=== PATIENT | male | born 1940 | race Caucasian/White ===

== ENCOUNTER 2018-10-14 15:06 | Inpatient (IN) ==
[2018-10-14] MEDS ORDERED: Lisinopril 20 MG TABLET PO PRN (19:07)
[2018-10-14] MEDS: *HR* OxyCODONE Immed Rel 5 MG TABLET PO PRN (21:16)
[2018-10-14] MEDS: Sennosides/Docusate Sodium TABLET PO SCH (21:16)
[2018-10-14] MEDS: Metoprolol XL (24 HR) Succ 50 MG TAB.ER.24H PO SCH (22:38)
[2018-10-15] MEDS: *HR* OxyCODONE Immed Rel 5 MG TABLET PO PRN ×3 (05:19→21:03)
[2018-10-15] MEDS: *HR* Enoxaparin 40 MG/0.4 ML SYRINGE SQ SCH (05:19)
[2018-10-15 06:18] LABS: Basophils % 0.4 %; Eosinophils # 0.1 K/mcL (0.0-0.6); Eosinophils % 2.7 %; Hematocrit 25.7 % (37.5-50.1); Hemoglobin 8.4 g/dL (12.9-16.9); Immature Granulocytes % 2.1 % (0-4); Lymphocytes # 0.7 K/mcL (0.6-4.6); Lymphocytes % 13.1 %; Mean Corpuscular HGB Conc 32.7 g/dL (31.6-35.5); Mean Corpuscular Hemoglobin 32.8 pg (28.0-33.3); Mean Corpuscular Volume 100.4 fL (83.0-100.0); Mean Platelet Volume 9.6 fL (9.4-12.4); Monocytes # 0.6 K/mcL (0.0-1.3); Monocytes % 11.9 %; Neutrophils # 3.6 K/mcL (1.6-8.9); Nucleated Red Blood Cells 0.4 /100 WBC (0); Platelet Count 357 K/mcL (140-400); Red Blood Count 2.56 M/mcL (4.19-5.50); Red Cell Distribution Width 16.3 % (11.5-14.5); Segmented Neutrophils % 69.8 %; White Blood Count 5.2 K/mcL (4.3-11.1)
[2018-10-15 06:51] LABS: BUN/Creatinine Ratio 18 (6-26); Blood Urea Nitrogen 16 mg/dL (8-23); Calcium 8.6 mg/dL (8.6-10.3); Carbon Dioxide 24 mEq/L (23-29); Chloride 108 mEq/L (98-107); Glucose 106 mg/dL (70-105); Osmolality,Calculated 292 (280-300); Potassium 3.4 mEq/L (3.5-5.1); Sodium 140 mEq/L (136-145); eGFR For African Americans > 60 (> 60); eGFR For Non-African Americans > 60 (> 60)
[2018-10-15] MEDS: Sennosides/Docusate Sodium TABLET PO SCH ×2 (08:27→20:45)
[2018-10-15] MEDS ORDERED: Metoprolol XL (24 HR) Succ 50 MG TAB.ER.24H PO SCH (09:00)
[2018-10-15] MEDS: Acetaminophen 325 MG TABLET PO PRN ×2 (12:31→21:03)
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
[2018-10-15] MEDS: Metoprolol XL (24 HR) Succ 50 MG TAB.ER.24H PO SCH (20:45)
[2018-10-16] MEDS: ceFAZolin 1,000 MG in Water for inj. (sterile) 10 ML IVP SCH ×3 (00:15→17:00)
[2018-10-16] MEDS: *HR* OxyCODONE Immed Rel 5 MG TABLET PO PRN ×3 (04:08→17:00)
[2018-10-16] MEDS: *HR* Enoxaparin 40 MG/0.4 ML SYRINGE SQ SCH (04:08)
[2018-10-16] MEDS: Acetaminophen 325 MG TABLET PO PRN ×3 (04:08→16:59)
[2018-10-16] MEDS: Sennosides/Docusate Sodium TABLET PO SCH ×2 (09:03→21:49)
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
[2018-10-16] MEDS: Saline Nasal Spray 44 ML BOTTLE NS SCH ×2 (16:58→21:50)
[2018-10-16] MEDS: Cyanocobalamin (B-12) 1,000 MCG TABLET PO SCH (17:01)
[2018-10-16] MEDS: Nystatin SUSP 5 ML UD.LIQ PO SCH ×2 (17:01→21:50)
[2018-10-16] MEDS ORDERED: Ascorbic Acid 500 MG TABLET PO SCH (21:00)
[2018-10-16] MEDS: Metoprolol XL (24 HR) Succ 50 MG TAB.ER.24H PO SCH (21:49)
[2018-10-16] MEDS: Ascorbic Acid 500 MG TABLET PO SCH (21:49)
[2018-10-16] MEDS: Lactobacillus 1 EACH CAP.SPRINK PO SCH (21:50)
[2018-10-16] MEDS: Chlorhexidine Rinse 15 ML MOUTHWASH MM SCH (21:50)
[2018-10-17] MEDS: Acetaminophen 325 MG TABLET PO PRN ×4 (00:15→23:54)
[2018-10-17] MEDS: *HR* OxyCODONE Immed Rel 5 MG TABLET PO PRN ×4 (00:15→23:52)
[2018-10-17] MEDS: ceFAZolin 1,000 MG in Water for inj. (sterile) 10 ML IVP SCH ×4 (00:15→23:44)
[2018-10-17 05:07] LABS: Hematocrit 25.3 % (37.5-50.1); Hemoglobin 7.9 g/dL (12.9-16.9); Immature Reticulocyte % 38.6 % (11.0-38.0); Mean Corpuscular HGB Conc 31.2 g/dL (31.6-35.5); Mean Corpuscular Hemoglobin 32.1 pg (28.0-33.3); Mean Corpuscular Volume 102.8 fL (83.0-100.0); Mean Platelet Volume 9.6 fL (9.4-12.4); Platelet Count 339 K/mcL (140-400); Red Blood Count 2.46 M/mcL (4.19-5.50); Red Cell Distribution Width 16.5 % (11.5-14.5); Retculocyte # 0.14 M/mcL (0.05-0.10); Reticulocyte % 5.7 % (1.6-2.8); White Blood Count 4.8 K/mcL (4.3-11.1)
[2018-10-17 05:22] LABS: BUN/Creatinine Ratio 20 (6-26); Blood Urea Nitrogen 19 mg/dL (8-23); Calcium 8.9 mg/dL (8.6-10.3); Carbon Dioxide 24 mEq/L (23-29); Chloride 111 mEq/L (98-107); Glucose 124 mg/dL (70-105); Osmolality,Calculated 296 (280-300); Potassium 3.8 mEq/L (3.5-5.1); Sodium 141 mEq/L (136-145); eGFR For African Americans > 60 (> 60); eGFR For Non-African Americans > 60 (> 60)
[2018-10-17 05:56] LABS: Thyroid Stimulating Hormone 2.773 mcIU/mL (0.340-5.600)
[2018-10-17] MEDS: *HR* Enoxaparin 40 MG/0.4 ML SYRINGE SQ SCH (06:20)
[2018-10-17 08:21] LABS: % Iron Saturation 18 % (20-55); Iron 46 mcg/dL (65-175); Transferrin 185 mg/dL (203-362)
[2018-10-17] MEDS: Saline Nasal Spray 44 ML BOTTLE NS SCH ×3 (08:37→21:33)
[2018-10-17] MEDS: Chlorhexidine Rinse 15 ML MOUTHWASH MM SCH ×2 (08:37→21:34)
[2018-10-17] MEDS: Sennosides/Docusate Sodium TABLET PO SCH ×2 (08:38→21:36)
[2018-10-17] MEDS: Lactobacillus 1 EACH CAP.SPRINK PO SCH ×2 (08:38→21:35)
[2018-10-17] MEDS: Cholecalciferol (D-3) 1,000 UNIT (25MCG) TABLET PO SCH (08:38)
[2018-10-17] MEDS: Cyanocobalamin (B-12) 1,000 MCG TABLET PO SCH (08:38)
[2018-10-17] MEDS: Ascorbic Acid 500 MG TABLET PO SCH ×2 (08:38→21:36)
[2018-10-17] MEDS: Nystatin SUSP 5 ML UD.LIQ PO SCH ×4 (08:39→21:35)
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
[2018-10-17] MEDS: Metoprolol XL (24 HR) Succ 50 MG TAB.ER.24H PO SCH (21:36)
[2018-10-18] MEDS: *HR* Enoxaparin 40 MG/0.4 ML SYRINGE SQ SCH (05:54)
[2018-10-18 05:57] LABS: Hematocrit 29.5 % (37.5-50.1); Hemoglobin 9.4 g/dL (12.9-16.9); Mean Corpuscular HGB Conc 31.9 g/dL (31.6-35.5); Mean Corpuscular Hemoglobin 32.1 pg (28.0-33.3); Mean Corpuscular Volume 100.7 fL (83.0-100.0); Mean Platelet Volume 8.9 fL (9.4-12.4); Platelet Count 434 K/mcL (140-400); Red Blood Count 2.93 M/mcL (4.19-5.50); Red Cell Distribution Width 16.6 % (11.5-14.5); White Blood Count 5.2 K/mcL (4.3-11.1)
[2018-10-18 06:10] LABS: BUN/Creatinine Ratio 18 (6-26); Blood Urea Nitrogen 17 mg/dL (8-23); Calcium 9.6 mg/dL (8.6-10.3); Carbon Dioxide 22 mEq/L (23-29); Chloride 109 mEq/L (98-107); Glucose 126 mg/dL (70-105); Osmolality,Calculated 293 (280-300); Potassium 4.1 mEq/L (3.5-5.1); Sodium 140 mEq/L (136-145); eGFR For African Americans > 60 (> 60); eGFR For Non-African Americans > 60 (> 60)
[2018-10-18] MEDS: Chlorhexidine Rinse 15 ML MOUTHWASH MM SCH ×2 (08:13→21:33)
[2018-10-18] MEDS: *HR* OxyCODONE Immed Rel 5 MG TABLET PO PRN ×3 (08:14→23:45)
[2018-10-18] MEDS: Cholecalciferol (D-3) 1,000 UNIT (25MCG) TABLET PO SCH (08:14)
[2018-10-18] MEDS: Sennosides/Docusate Sodium TABLET PO SCH ×2 (08:14→21:35)
[2018-10-18] MEDS: Acetaminophen 325 MG TABLET PO PRN ×3 (08:14→23:45)
[2018-10-18] MEDS: Lactobacillus 1 EACH CAP.SPRINK PO SCH ×2 (08:14→21:34)
[2018-10-18] MEDS: Cyanocobalamin (B-12) 1,000 MCG TABLET PO SCH (08:14)
[2018-10-18] MEDS: Ascorbic Acid 500 MG TABLET PO SCH ×2 (08:14→21:37)
[2018-10-18] MEDS: ceFAZolin 1,000 MG in Water for inj. (sterile) 10 ML IVP SCH ×3 (08:17→23:45)
[2018-10-18] MEDS: Nystatin SUSP 5 ML UD.LIQ PO SCH ×4 (09:51→21:34)
[2018-10-18] MEDS: Saline Nasal Spray 44 ML BOTTLE NS SCH ×3 (09:51→21:34)
[2018-10-18] MEDS: Metoprolol XL (24 HR) Succ 50 MG TAB.ER.24H PO SCH (21:35)
[2018-10-19] MEDS: *HR* Enoxaparin 40 MG/0.4 ML SYRINGE SQ SCH (05:19)
[2018-10-19 05:26] LABS: Hematocrit 27.2 % (37.5-50.1); Hemoglobin 8.5 g/dL (12.9-16.9); Mean Corpuscular HGB Conc 31.3 g/dL (31.6-35.5); Mean Corpuscular Hemoglobin 32.6 pg (28.0-33.3); Mean Corpuscular Volume 104.2 fL (83.0-100.0); Mean Platelet Volume 9.4 fL (9.4-12.4); Platelet Count 339 K/mcL (140-400); Red Blood Count 2.61 M/mcL (4.19-5.50); Red Cell Distribution Width 16.4 % (11.5-14.5); White Blood Count 4.7 K/mcL (4.3-11.1)
[2018-10-19 05:42] LABS: BUN/Creatinine Ratio 16 (6-26); Blood Urea Nitrogen 16 mg/dL (8-23); Calcium 8.9 mg/dL (8.6-10.3); Carbon Dioxide 24 mEq/L (23-29); Chloride 109 mEq/L (98-107); Glucose 131 mg/dL (70-105); Osmolality,Calculated 293 (280-300); Potassium 3.8 mEq/L (3.5-5.1); Sodium 140 mEq/L (136-145); eGFR For African Americans > 60 (> 60); eGFR For Non-African Americans > 60 (> 60)
[2018-10-19] MEDS: ceFAZolin 1,000 MG in Water for inj. (sterile) 10 ML IVP SCH ×3 (09:14→23:44)
[2018-10-19] MEDS: Sennosides/Docusate Sodium TABLET PO SCH ×2 (09:23→21:43)
[2018-10-19] MEDS: Cholecalciferol (D-3) 1,000 UNIT (25MCG) TABLET PO SCH (09:23)
[2018-10-19] MEDS: Lactobacillus 1 EACH CAP.SPRINK PO SCH ×2 (09:23→21:42)
[2018-10-19] MEDS: Ascorbic Acid 500 MG TABLET PO SCH ×2 (09:23→21:42)
[2018-10-19] MEDS: Cyanocobalamin (B-12) 1,000 MCG TABLET PO SCH (09:24)
[2018-10-19] MEDS: Saline Nasal Spray 44 ML BOTTLE NS SCH ×3 (09:25→21:47)
[2018-10-19] MEDS: Chlorhexidine Rinse 15 ML MOUTHWASH MM SCH ×2 (09:25→21:50)
[2018-10-19] MEDS: Nystatin SUSP 5 ML UD.LIQ PO SCH ×4 (09:25→21:48)
[2018-10-19] MEDS: *HR* OxyCODONE Immed Rel 5 MG TABLET PO PRN ×3 (09:38→21:39)
[2018-10-19] MEDS: Acetaminophen 325 MG TABLET PO PRN ×3 (09:38→21:39)
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
[2018-10-19] MEDS: Metoprolol XL (24 HR) Succ 50 MG TAB.ER.24H PO SCH (21:41)
[2018-10-20] MEDS: Acetaminophen 325 MG TABLET PO PRN ×3 (04:26→18:02)
[2018-10-20] MEDS: *HR* OxyCODONE Immed Rel 5 MG TABLET PO PRN ×3 (04:26→18:02)
[2018-10-20] MEDS: *HR* Enoxaparin 40 MG/0.4 ML SYRINGE SQ SCH (04:28)
[2018-10-20 05:46] LABS: Hematocrit 27.7 % (37.5-50.1); Hemoglobin 8.6 g/dL (12.9-16.9); Mean Corpuscular Hemoglobin 32.3 pg (28.0-33.3); Mean Corpuscular Volume 104.1 fL (83.0-100.0); Mean Platelet Volume 9.5 fL (9.4-12.4); Platelet Count 371 K/mcL (140-400); Red Blood Count 2.66 M/mcL (4.19-5.50); Red Cell Distribution Width 16.6 % (11.5-14.5); White Blood Count 4.8 K/mcL (4.3-11.1)
[2018-10-20 06:20] LABS: BUN/Creatinine Ratio 19 (6-26); Blood Urea Nitrogen 18 mg/dL (8-23); Calcium 9.2 mg/dL (8.6-10.3); Carbon Dioxide 25 mEq/L (23-29); Chloride 109 mEq/L (98-107); Glucose 110 mg/dL (70-105); Osmolality,Calculated 293 (280-300); Potassium 3.9 mEq/L (3.5-5.1); Sodium 140 mEq/L (136-145); eGFR For African Americans > 60 (> 60); eGFR For Non-African Americans > 60 (> 60)
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
[2018-10-20] MEDS: Nystatin SUSP 5 ML UD.LIQ PO SCH ×4 (09:55→22:52)
[2018-10-20] MEDS: Chlorhexidine Rinse 15 ML MOUTHWASH MM SCH ×2 (09:55→22:52)
[2018-10-20] MEDS: Cholecalciferol (D-3) 1,000 UNIT (25MCG) TABLET PO SCH (09:55)
[2018-10-20] MEDS: ceFAZolin 1,000 MG in Water for inj. (sterile) 10 ML IVP SCH ×2 (09:55→18:04)
[2018-10-20] MEDS: Sennosides/Docusate Sodium TABLET PO SCH ×2 (09:55→22:53)
[2018-10-20] MEDS: Cyanocobalamin (B-12) 1,000 MCG TABLET PO SCH (09:55)
[2018-10-20] MEDS: Ascorbic Acid 500 MG TABLET PO SCH ×2 (09:55→22:53)
[2018-10-20] MEDS: Saline Nasal Spray 44 ML BOTTLE NS SCH ×3 (09:56→22:52)
[2018-10-20] MEDS: Lactobacillus 1 EACH CAP.SPRINK PO SCH ×3 (09:56→22:52)
[2018-10-20] MEDS: Metoprolol XL (24 HR) Succ 50 MG TAB.ER.24H PO SCH (22:53)
[2018-10-21] MEDS: ceFAZolin 1,000 MG in Water for inj. (sterile) 10 ML IVP SCH ×3 (00:25→17:38)
[2018-10-21] MEDS: Acetaminophen 325 MG TABLET PO PRN ×4 (00:25→21:00)
[2018-10-21] MEDS: *HR* OxyCODONE Immed Rel 5 MG TABLET PO PRN ×4 (00:25→21:00)
[2018-10-21] MEDS: *HR* Enoxaparin 40 MG/0.4 ML SYRINGE SQ SCH (05:49)
[2018-10-21] MEDS: Sennosides/Docusate Sodium TABLET PO SCH ×2 (08:58→20:44)
[2018-10-21] MEDS: Lactobacillus 1 EACH CAP.SPRINK PO SCH ×2 (08:58→20:46)
[2018-10-21] MEDS: Cholecalciferol (D-3) 1,000 UNIT (25MCG) TABLET PO SCH (08:58)
[2018-10-21] MEDS: Cyanocobalamin (B-12) 1,000 MCG TABLET PO SCH (08:59)
[2018-10-21] MEDS: Ascorbic Acid 500 MG TABLET PO SCH ×2 (08:59→20:45)
[2018-10-21] MEDS: Chlorhexidine Rinse 15 ML MOUTHWASH MM SCH ×2 (09:02→20:46)
[2018-10-21] MEDS: Nystatin SUSP 5 ML UD.LIQ PO SCH ×4 (09:04→20:45)
[2018-10-21] MEDS: Saline Nasal Spray 44 ML BOTTLE NS SCH ×3 (09:04→20:45)
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
[2018-10-21] MEDS: Metoprolol XL (24 HR) Succ 50 MG TAB.ER.24H PO SCH (20:49)
[2018-10-22] MEDS: ceFAZolin 1,000 MG in Water for inj. (sterile) 10 ML IVP SCH ×3 (00:13→17:50)
[2018-10-22] MEDS: *HR* OxyCODONE Immed Rel 5 MG TABLET PO PRN ×3 (04:00→18:06)
[2018-10-22] MEDS: Acetaminophen 325 MG TABLET PO PRN ×3 (04:00→18:07)
[2018-10-22] MEDS: *HR* Enoxaparin 40 MG/0.4 ML SYRINGE SQ SCH (04:02)
[2018-10-22] MEDS: Lactobacillus 1 EACH CAP.SPRINK PO SCH ×2 (09:30→22:14)
[2018-10-22] MEDS: Sennosides/Docusate Sodium TABLET PO SCH ×2 (09:30→22:14)
[2018-10-22] MEDS: Nystatin SUSP 5 ML UD.LIQ PO SCH ×4 (09:30→22:14)
[2018-10-22] MEDS: Saline Nasal Spray 44 ML BOTTLE NS SCH ×3 (09:31→22:16)
[2018-10-22] MEDS: Ascorbic Acid 500 MG TABLET PO SCH ×2 (09:31→22:14)
[2018-10-22] MEDS: Cyanocobalamin (B-12) 1,000 MCG TABLET PO SCH (09:31)
[2018-10-22] MEDS: Chlorhexidine Rinse 15 ML MOUTHWASH MM SCH ×2 (09:31→22:14)
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
[2018-10-22] MEDS: Cholecalciferol (D-3) 1,000 UNIT (25MCG) TABLET PO SCH (12:08)
[2018-10-22] MEDS: Metoprolol XL (24 HR) Succ 50 MG TAB.ER.24H PO SCH (22:14)
[2018-10-23] MEDS: *HR* OxyCODONE Immed Rel 5 MG TABLET PO PRN ×4 (00:07→23:42)
[2018-10-23] MEDS: ceFAZolin 1,000 MG in Water for inj. (sterile) 10 ML IVP SCH ×4 (00:07→16:15)
[2018-10-23] MEDS: Acetaminophen 325 MG TABLET PO PRN ×4 (00:07→23:42)
[2018-10-23] MEDS: *HR* Enoxaparin 40 MG/0.4 ML SYRINGE SQ SCH (06:13)
[2018-10-23] MEDS: Lactobacillus 1 EACH CAP.SPRINK PO SCH ×2 (09:26→20:28)
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
[2018-10-23] MEDS: Cyanocobalamin (B-12) 1,000 MCG TABLET PO SCH (09:27)
[2018-10-23] MEDS: Ascorbic Acid 500 MG TABLET PO SCH ×2 (09:27→20:28)
[2018-10-23] MEDS: Cholecalciferol (D-3) 1,000 UNIT (25MCG) TABLET PO SCH (09:27)
[2018-10-23] MEDS: Sennosides/Docusate Sodium TABLET PO SCH ×2 (09:27→20:31)
[2018-10-23] MEDS: Chlorhexidine Rinse 15 ML MOUTHWASH MM SCH (10:01)
[2018-10-23] MEDS: Nystatin SUSP 5 ML UD.LIQ PO SCH (10:02)
[2018-10-23] MEDS: Saline Nasal Spray 44 ML BOTTLE NS SCH ×3 (10:02→20:32)
[2018-10-23] MEDS ORDERED: Chlorhexidine Rinse 15 ML MOUTHWASH MM PRN (12:29)
[2018-10-23] MEDS: cephALEXin 500 MG CAPSULE PO SCH ×2 (17:02→20:29)
[2018-10-23] MEDS: Metoprolol XL (24 HR) Succ 50 MG TAB.ER.24H PO SCH (20:32)
[2018-10-24] MEDS: *HR* Enoxaparin 40 MG/0.4 ML SYRINGE SQ SCH (06:06)
[2018-10-24] MEDS: Acetaminophen 325 MG TABLET PO PRN ×3 (06:06→21:52)
[2018-10-24] MEDS: *HR* OxyCODONE Immed Rel 5 MG TABLET PO PRN ×3 (06:06→21:52)
[2018-10-24] MEDS: Sennosides/Docusate Sodium TABLET PO SCH ×2 (10:04→21:54)
[2018-10-24] MEDS: Ascorbic Acid 500 MG TABLET PO SCH ×2 (10:04→21:53)
[2018-10-24] MEDS: Cyanocobalamin (B-12) 1,000 MCG TABLET PO SCH (10:04)
[2018-10-24] MEDS: Lactobacillus 1 EACH CAP.SPRINK PO SCH ×2 (10:05→21:54)
[2018-10-24] MEDS: Cholecalciferol (D-3) 1,000 UNIT (25MCG) TABLET PO SCH (10:05)
[2018-10-24] MEDS: cephALEXin 500 MG CAPSULE PO SCH ×4 (10:05→21:54)
[2018-10-24] MEDS: Saline Nasal Spray 44 ML BOTTLE NS SCH ×3 (10:05→21:54)
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
[2018-10-24] MEDS: Metoprolol XL (24 HR) Succ 50 MG TAB.ER.24H PO SCH (21:53)
[2018-10-25] MEDS: *HR* OxyCODONE Immed Rel 5 MG TABLET PO PRN ×3 (05:45→19:59)
[2018-10-25] MEDS: *HR* Enoxaparin 40 MG/0.4 ML SYRINGE SQ SCH (05:45)
[2018-10-25] MEDS: Acetaminophen 325 MG TABLET PO PRN ×3 (05:45→19:59)
[2018-10-25 05:53] LABS: Hematocrit 30.4 % (37.5-50.1); Hemoglobin 9.4 g/dL (12.9-16.9); Mean Corpuscular HGB Conc 30.9 g/dL (31.6-35.5); Mean Corpuscular Hemoglobin 32.2 pg (28.0-33.3); Mean Corpuscular Volume 104.1 fL (83.0-100.0); Mean Platelet Volume 9.3 fL (9.4-12.4); Platelet Count 324 K/mcL (140-400); Red Blood Count 2.92 M/mcL (4.19-5.50); Red Cell Distribution Width 16.8 % (11.5-14.5)
[2018-10-25 06:10] LABS: BUN/Creatinine Ratio 18 (6-26); Blood Urea Nitrogen 17 mg/dL (8-23); Calcium 9.5 mg/dL (8.6-10.3); Carbon Dioxide 26 mEq/L (23-29); Glucose 110 mg/dL (70-105); Magnesium 1.9 mg/dL (1.6-2.6); Potassium 3.7 mEq/L (3.5-5.1); eGFR For African Americans > 60 (> 60); eGFR For Non-African Americans > 60 (> 60)
[2018-10-25 06:24] LABS: Chloride 109 mEq/L (98-107); Osmolality,Calculated 296 (280-300); Sodium 142 mEq/L (136-145)
[2018-10-25] MEDS: Cyanocobalamin (B-12) 1,000 MCG TABLET PO SCH (09:34)
[2018-10-25] MEDS: Lactobacillus 1 EACH CAP.SPRINK PO SCH ×2 (09:34→19:59)
[2018-10-25] MEDS: Ascorbic Acid 500 MG TABLET PO SCH ×2 (09:34→20:00)
[2018-10-25] MEDS: cephALEXin 500 MG CAPSULE PO SCH ×4 (09:34→20:00)
[2018-10-25] MEDS: Sennosides/Docusate Sodium TABLET PO SCH ×2 (09:34→20:00)
[2018-10-25] MEDS: Cholecalciferol (D-3) 1,000 UNIT (25MCG) TABLET PO SCH (09:35)
[2018-10-25] MEDS: Saline Nasal Spray 44 ML BOTTLE NS SCH ×3 (09:35→20:00)
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
[2018-10-25] MEDS: Metoprolol XL (24 HR) Succ 50 MG TAB.ER.24H PO SCH (20:00)
[2018-10-26] MEDS: Acetaminophen 325 MG TABLET PO PRN ×3 (03:11→19:50)
[2018-10-26] MEDS: *HR* OxyCODONE Immed Rel 5 MG TABLET PO PRN ×3 (03:14→19:51)
[2018-10-26] MEDS: *HR* Enoxaparin 40 MG/0.4 ML SYRINGE SQ SCH (05:35)
[2018-10-26] MEDS: Cholecalciferol (D-3) 1,000 UNIT (25MCG) TABLET PO SCH (08:19)
[2018-10-26] MEDS: Ascorbic Acid 500 MG TABLET PO SCH ×2 (08:21→19:50)
[2018-10-26] MEDS: Sennosides/Docusate Sodium TABLET PO SCH ×2 (08:22→19:51)
[2018-10-26] MEDS: Cyanocobalamin (B-12) 1,000 MCG TABLET PO SCH (08:22)
[2018-10-26] MEDS: Lactobacillus 1 EACH CAP.SPRINK PO SCH ×2 (08:22→19:51)
[2018-10-26] MEDS: cephALEXin 500 MG CAPSULE PO SCH ×4 (08:23→19:51)
[2018-10-26] MEDS: Saline Nasal Spray 44 ML BOTTLE NS SCH ×3 (08:25→19:52)
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
[2018-10-26] MEDS: Metoprolol XL (24 HR) Succ 50 MG TAB.ER.24H PO SCH (19:51)
[2018-10-27] MEDS: *HR* OxyCODONE Immed Rel 5 MG TABLET PO PRN ×4 (01:29→22:20)
[2018-10-27] MEDS: Acetaminophen 325 MG TABLET PO PRN ×4 (01:29→22:18)
[2018-10-27] MEDS: *HR* Enoxaparin 40 MG/0.4 ML SYRINGE SQ SCH (04:46)
[2018-10-27] MEDS: Cyanocobalamin (B-12) 1,000 MCG TABLET PO SCH (09:00)
[2018-10-27] MEDS: Sennosides/Docusate Sodium TABLET PO SCH ×2 (09:00→22:19)
[2018-10-27] MEDS: Ascorbic Acid 500 MG TABLET PO SCH ×2 (09:01→22:18)
[2018-10-27] MEDS: cephALEXin 500 MG CAPSULE PO SCH ×4 (09:01→22:19)
[2018-10-27] MEDS: Lactobacillus 1 EACH CAP.SPRINK PO SCH ×2 (09:01→22:18)
[2018-10-27] MEDS: Cholecalciferol (D-3) 1,000 UNIT (25MCG) TABLET PO SCH (09:02)
[2018-10-27] MEDS: Saline Nasal Spray 44 ML BOTTLE NS SCH ×3 (09:02→22:21)
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
[2018-10-27] MEDS: Metoprolol XL (24 HR) Succ 50 MG TAB.ER.24H PO SCH (22:20)
[2018-10-28] MEDS: *HR* Enoxaparin 40 MG/0.4 ML SYRINGE SQ SCH (04:53)
[2018-10-28] MEDS: Acetaminophen 325 MG TABLET PO PRN ×3 (04:53→17:48)
[2018-10-28] MEDS: *HR* OxyCODONE Immed Rel 5 MG TABLET PO PRN ×3 (04:53→17:48)
[2018-10-28] MEDS: Lactobacillus 1 EACH CAP.SPRINK PO SCH ×2 (08:23→20:59)
[2018-10-28] MEDS: Ascorbic Acid 500 MG TABLET PO SCH ×2 (08:23→20:59)
[2018-10-28] MEDS: cephALEXin 500 MG CAPSULE PO SCH ×3 (08:23→17:48)
[2018-10-28] MEDS: Sennosides/Docusate Sodium TABLET PO SCH ×2 (08:23→20:59)
[2018-10-28] MEDS: Cyanocobalamin (B-12) 1,000 MCG TABLET PO SCH (08:24)
[2018-10-28] MEDS: Saline Nasal Spray 44 ML BOTTLE NS SCH ×3 (08:24→21:00)
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
[2018-10-28] MEDS: Metoprolol XL (24 HR) Succ 50 MG TAB.ER.24H PO SCH (21:00)
[2018-10-29] MEDS: *HR* OxyCODONE Immed Rel 5 MG TABLET PO PRN ×3 (00:57→21:01)
[2018-10-29] MEDS: Acetaminophen 325 MG TABLET PO PRN ×3 (00:57→21:00)
[2018-10-29] MEDS: *HR* Enoxaparin 40 MG/0.4 ML SYRINGE SQ SCH (06:48)
[2018-10-29] MEDS: Lactobacillus 1 EACH CAP.SPRINK PO SCH ×2 (08:36→20:58)
[2018-10-29] MEDS: Sennosides/Docusate Sodium TABLET PO SCH ×2 (08:36→21:01)
[2018-10-29] MEDS: Ascorbic Acid 500 MG TABLET PO SCH ×2 (08:36→20:59)
[2018-10-29] MEDS: Cyanocobalamin (B-12) 1,000 MCG TABLET PO SCH (08:36)
[2018-10-29] MEDS: Saline Nasal Spray 44 ML BOTTLE NS SCH ×3 (08:37→21:01)
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
[2018-10-29] MEDS: Metoprolol XL (24 HR) Succ 50 MG TAB.ER.24H PO SCH (20:59)
[2018-10-30] MEDS: Lactobacillus 1 EACH CAP.SPRINK PO SCH ×2 (05:45→20:50)
[2018-10-30] MEDS: Cyanocobalamin (B-12) 1,000 MCG TABLET PO SCH (05:46)
[2018-10-30] MEDS: Ascorbic Acid 500 MG TABLET PO SCH ×2 (05:46→20:51)
[2018-10-30] MEDS: *HR* Enoxaparin 40 MG/0.4 ML SYRINGE SQ SCH (05:48)
[2018-10-30] MEDS: Saline Nasal Spray 44 ML BOTTLE NS SCH ×3 (05:50→20:51)
[2018-10-30] MEDS: Sennosides/Docusate Sodium TABLET PO SCH ×2 (07:56→21:00)
[2018-10-30] MEDS: *HR* OxyCODONE Immed Rel 5 MG TABLET PO PRN ×2 (08:00→18:56)
[2018-10-30] MEDS: Acetaminophen 325 MG TABLET PO PRN ×2 (08:02→18:56)
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
[2018-10-30] MEDS: Metoprolol XL (24 HR) Succ 50 MG TAB.ER.24H PO SCH (20:53)
[2018-10-31] MEDS: *HR* Enoxaparin 40 MG/0.4 ML SYRINGE SQ SCH (04:20)
[2018-10-31] MEDS: Acetaminophen 325 MG TABLET PO PRN ×2 (08:33→21:39)
[2018-10-31] MEDS: Ascorbic Acid 500 MG TABLET PO SCH ×2 (08:33→21:39)
[2018-10-31] MEDS: Lactobacillus 1 EACH CAP.SPRINK PO SCH ×2 (08:34→21:39)
[2018-10-31] MEDS: Sennosides/Docusate Sodium TABLET PO SCH (08:34)
[2018-10-31] MEDS: *HR* OxyCODONE Immed Rel 5 MG TABLET PO PRN ×2 (08:34→21:39)
[2018-10-31] MEDS: Cyanocobalamin (B-12) 1,000 MCG TABLET PO SCH (08:34)
[2018-10-31] MEDS: Saline Nasal Spray 44 ML BOTTLE NS SCH ×3 (08:35→21:40)
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
[2018-10-31] MEDS: Metoprolol XL (24 HR) Succ 50 MG TAB.ER.24H PO SCH (21:40)
[2018-11-01] MEDS: *HR* OxyCODONE Immed Rel 5 MG TABLET PO PRN ×2 (05:28→21:44)
[2018-11-01] MEDS: *HR* Enoxaparin 40 MG/0.4 ML SYRINGE SQ SCH (05:28)
[2018-11-01] MEDS: Acetaminophen 325 MG TABLET PO PRN ×2 (05:28→21:44)
[2018-11-01] MEDS: Lactobacillus 1 EACH CAP.SPRINK PO SCH ×2 (09:28→21:45)
[2018-11-01] MEDS: Cyanocobalamin (B-12) 1,000 MCG TABLET PO SCH (09:28)
[2018-11-01] MEDS: Saline Nasal Spray 44 ML BOTTLE NS SCH ×3 (09:28→21:45)
[2018-11-01] MEDS: Ascorbic Acid 500 MG TABLET PO SCH ×2 (09:28→21:45)
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
[2018-11-01] MEDS ORDERED: Eucerin Cream 57 GM TUBE TP PRN (16:04)
[2018-11-01] MEDS: Metoprolol XL (24 HR) Succ 50 MG TAB.ER.24H PO SCH (21:43)
[2018-11-02] MEDS: *HR* Enoxaparin 40 MG/0.4 ML SYRINGE SQ SCH (05:34)
[2018-11-02] MEDS: Acetaminophen 325 MG TABLET PO PRN ×3 (05:34→20:48)
[2018-11-02] MEDS: *HR* OxyCODONE Immed Rel 5 MG TABLET PO PRN ×3 (05:34→20:49)
[2018-11-02] MEDS: Ascorbic Acid 500 MG TABLET PO SCH ×2 (08:09→20:45)
[2018-11-02] MEDS: Lactobacillus 1 EACH CAP.SPRINK PO SCH ×2 (08:09→20:47)
[2018-11-02] MEDS: Cyanocobalamin (B-12) 1,000 MCG TABLET PO SCH (08:09)
[2018-11-02] MEDS: Saline Nasal Spray 44 ML BOTTLE NS SCH ×3 (08:10→20:50)
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
[2018-11-02] MEDS: Metoprolol XL (24 HR) Succ 50 MG TAB.ER.24H PO SCH (20:46)
[2018-11-03] MEDS: *HR* Enoxaparin 40 MG/0.4 ML SYRINGE SQ SCH (04:23)
[2018-11-03] MEDS: Acetaminophen 325 MG TABLET PO PRN ×3 (04:23→22:38)
[2018-11-03] MEDS: *HR* OxyCODONE Immed Rel 5 MG TABLET PO PRN ×3 (04:23→22:39)
[2018-11-03] MEDS: Ascorbic Acid 500 MG TABLET PO SCH ×2 (10:00→22:39)
[2018-11-03] MEDS: Cyanocobalamin (B-12) 1,000 MCG TABLET PO SCH (10:00)
[2018-11-03] MEDS: Lactobacillus 1 EACH CAP.SPRINK PO SCH ×2 (10:00→22:38)
[2018-11-03] MEDS: Saline Nasal Spray 44 ML BOTTLE NS SCH ×3 (10:01→22:40)
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
[2018-11-03] MEDS: Metoprolol XL (24 HR) Succ 50 MG TAB.ER.24H PO SCH (22:39)
[2018-11-04] MEDS: Acetaminophen 325 MG TABLET PO PRN ×3 (05:29→21:55)
[2018-11-04] MEDS: *HR* OxyCODONE Immed Rel 5 MG TABLET PO PRN ×3 (05:30→21:55)
[2018-11-04] MEDS: *HR* Enoxaparin 40 MG/0.4 ML SYRINGE SQ SCH (05:30)
[2018-11-04] MEDS: Ascorbic Acid 500 MG TABLET PO SCH ×2 (09:14→21:54)
[2018-11-04] MEDS: Lactobacillus 1 EACH CAP.SPRINK PO SCH ×2 (09:14→21:53)
[2018-11-04] MEDS: Cyanocobalamin (B-12) 1,000 MCG TABLET PO SCH (09:14)
[2018-11-04] MEDS: Saline Nasal Spray 44 ML BOTTLE NS SCH ×3 (09:14→21:56)
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
[2018-11-04] MEDS: Metoprolol XL (24 HR) Succ 50 MG TAB.ER.24H PO SCH (21:54)
[2018-11-05] MEDS: *HR* Enoxaparin 40 MG/0.4 ML SYRINGE SQ SCH (04:41)
[2018-11-05 06:34] LABS: Hematocrit 36.2 % (37.5-50.1); Hemoglobin 11.5 g/dL (12.9-16.9); Mean Corpuscular HGB Conc 31.8 g/dL (31.6-35.5); Mean Corpuscular Hemoglobin 32.3 pg (28.0-33.3); Mean Corpuscular Volume 101.7 fL (83.0-100.0); Mean Platelet Volume 9.7 fL (9.4-12.4); Platelet Count 251 K/mcL (140-400); Red Blood Count 3.56 M/mcL (4.19-5.50); Red Cell Distribution Width 15.3 % (11.5-14.5); White Blood Count 5.2 K/mcL (4.3-11.1)
[2018-11-05 06:54] LABS: Alanine Aminotransferase 11 Units/L (7-52); Albumin 3.5 g/dL (3.5-5.7); Albumin/Globulin Ratio 1.5 (1.1-2.2); Alkaline Phosphatase 80 Units/L (34-104); Aspartate Amino Transferase 14 Units/L (13-39); BUN/Creatinine Ratio 17 (6-26); Bilirubin,Total 0.3 mg/dL (0.3-1.0); Blood Urea Nitrogen 18 mg/dL (8-23); Calcium 9.8 mg/dL (8.6-10.3); Carbon Dioxide 24 mEq/L (23-29); Chloride 108 mEq/L (98-107); Globulin 2.3 g/dL (2.4-3.5); Glucose 104 mg/dL (70-105); Magnesium 1.8 mg/dL (1.6-2.6); Osmolality,Calculated 288 (280-300); Potassium 3.8 mEq/L (3.5-5.1); Sodium 138 mEq/L (136-145); Total Protein 5.8 g/dL (6.4-8.9); eGFR For African Americans > 60 (> 60); eGFR For Non-African Americans > 60 (> 60)
[2018-11-05] MEDS: Acetaminophen 325 MG TABLET PO PRN ×2 (09:46→20:39)
[2018-11-05] MEDS: Lactobacillus 1 EACH CAP.SPRINK PO SCH ×2 (09:46→20:34)
[2018-11-05] MEDS: Cyanocobalamin (B-12) 1,000 MCG TABLET PO SCH (09:46)
[2018-11-05] MEDS: *HR* OxyCODONE Immed Rel 5 MG TABLET PO PRN ×2 (09:46→20:39)
[2018-11-05] MEDS: Ascorbic Acid 500 MG TABLET PO SCH ×2 (09:47→20:35)
[2018-11-05] MEDS: Saline Nasal Spray 44 ML BOTTLE NS SCH ×3 (09:47→20:37)
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
--- NOTE | 2018-11-05 15:28 | Rehab Psychology Progress Note ---
Date of Encounter: 11/05/18 Time of Encounter: 10:00 Subjective - Patient Report Patient Report: Depressed and frustrated because insurance "cutting him off". He is appealing decision for DC this week. Feels he needs more time in rehab to be able to go home safely and independently. - Symptoms Symptoms: Displays stress and some difficulty sustaining attention. Objective - WHODAS Functional Impairment Concentration, Problem-solving, Communication: Mild Social Functioning: None - Mental Status Mental Status Changes: OX3. recall my title and our session last week. Assessment and Plan - Diagnosis (1) Adjustment disorder with depressed mood - Response to Treatment Response to Treatment: Improved - Prognosis Prognosis: Good - Treatment Plan Treatment Plan Recommendations: Continue Current Plan/Goals Treatment Frequency: weekly Next Session Date: 11/12/18 Procedures - Intervention Interventions: Cognitive/Behavioral Therapy - Modality Modality: Psychotherapy 30 minutes - Participants Therapy Participant: Patient - Session Time Session Start Time: 10:00 Session Stop Time: 10:30
[2018-11-05] MEDS: Metoprolol XL (24 HR) Succ 50 MG TAB.ER.24H PO SCH (20:35)
[2018-11-05 21:47] LABS: Hematocrit RBC Folate 34.7 %
[2018-11-06] MEDS: Acetaminophen 325 MG TABLET PO PRN ×2 (02:32→22:26)
[2018-11-06] MEDS: *HR* OxyCODONE Immed Rel 5 MG TABLET PO PRN ×3 (02:34→22:26)
[2018-11-06] MEDS: *HR* Enoxaparin 40 MG/0.4 ML SYRINGE SQ SCH (04:51)
[2018-11-06] MEDS: Lactobacillus 1 EACH CAP.SPRINK PO SCH ×2 (09:26→22:27)
[2018-11-06] MEDS: Cyanocobalamin (B-12) 1,000 MCG TABLET PO SCH (09:26)
[2018-11-06] MEDS: Ascorbic Acid 500 MG TABLET PO SCH ×2 (09:26→22:26)
[2018-11-06] MEDS: Saline Nasal Spray 44 ML BOTTLE NS SCH ×3 (09:27→22:27)
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
[2018-11-06] MEDS: Metoprolol XL (24 HR) Succ 50 MG TAB.ER.24H PO SCH (22:27)
[2018-11-07] MEDS: Acetaminophen 325 MG TABLET PO PRN ×2 (04:24→20:22)
[2018-11-07] MEDS: *HR* OxyCODONE Immed Rel 5 MG TABLET PO PRN ×2 (04:24→20:22)
[2018-11-07] MEDS: *HR* Enoxaparin 40 MG/0.4 ML SYRINGE SQ SCH (04:24)
[2018-11-07] MEDS: Saline Nasal Spray 44 ML BOTTLE NS SCH ×3 (09:15→20:22)
[2018-11-07] MEDS: Ascorbic Acid 500 MG TABLET PO SCH ×2 (09:15→20:21)
[2018-11-07] MEDS: Lactobacillus 1 EACH CAP.SPRINK PO SCH ×2 (09:15→20:21)
[2018-11-07] MEDS: Cyanocobalamin (B-12) 1,000 MCG TABLET PO SCH (09:15)
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
[2018-11-07] MEDS: Metoprolol XL (24 HR) Succ 50 MG TAB.ER.24H PO SCH (20:22)
[2018-11-08] MEDS: *HR* Enoxaparin 40 MG/0.4 ML SYRINGE SQ SCH (05:57)
[2018-11-08] MEDS: *HR* OxyCODONE Immed Rel 5 MG TABLET PO PRN ×3 (05:57→23:33)
[2018-11-08] MEDS: Acetaminophen 325 MG TABLET PO PRN ×3 (05:57→23:38)
[2018-11-08] MEDS: Cyanocobalamin (B-12) 1,000 MCG TABLET PO SCH (08:55)
[2018-11-08] MEDS: Ascorbic Acid 500 MG TABLET PO SCH ×2 (08:55→20:11)
[2018-11-08] MEDS: Lactobacillus 1 EACH CAP.SPRINK PO SCH ×2 (08:55→20:10)
[2018-11-08] MEDS: Saline Nasal Spray 44 ML BOTTLE NS SCH ×3 (08:55→20:13)
--- NOTE | 2018-11-08 12:35 | Internal Med Progress Note ---
Date of Encounter: 11/07/18 Time of Encounter: 10:00 - Time Spent With Patient less than 15 minutes - Subjective Interval history: I'm doing ok. - Constitutional Vitals: Temp Pulse Resp BP Pulse Ox 97.4 F L 76 16 109/74 96 11/08/18 07:15 11/08/18 07:15 11/08/18 07:15 11/08/18 07:15 11/08/18 07:15 General appearance: Present: A&O X 3, pleasant, answers questions appropriately - Head Head exam: Present: atraumatic, normal inspection, normocephalic - Respiratory Respiratory exam: Present: CTAB. Absent: accessory muscle use, rales, rhonchi, wheezes - Cardiovascular Cardiovascular exam: Present: RRR, +S1, +S2. Absent: diastolic murmur, gallop, rubs, systolic murmur - GI/Abdominal GI/Abdominal exam: Present: normal bowel sounds, soft, no peritoneal signs. Absent: distended, tenderness - Expanded Upper Extremities Exam General: Present: laceration - Expanded Lower Extremities Exam Knee exam: Present: abrasion Internal Medicine: Result - Labs CBC & Chem 7: 11/05/18 06:15 11/05/18 06:15 Consult Discharge Plan - Plan Referrals: NONE,PCP [Primary Care Provider] - (went to [facility] )
[2018-11-08] MEDS: Metoprolol XL (24 HR) Succ 50 MG TAB.ER.24H PO SCH (20:11)
[2018-11-09] MEDS: *HR* Enoxaparin 40 MG/0.4 ML SYRINGE SQ SCH (05:16)
[2018-11-09] MEDS: Cyanocobalamin (B-12) 1,000 MCG TABLET PO SCH (09:22)
[2018-11-09] MEDS: Ascorbic Acid 500 MG TABLET PO SCH ×2 (09:22→22:06)
[2018-11-09] MEDS: Saline Nasal Spray 44 ML BOTTLE NS SCH ×3 (09:23→22:08)
[2018-11-09] MEDS: Lactobacillus 1 EACH CAP.SPRINK PO SCH ×2 (09:23→22:06)
--- NOTE | 2018-11-09 13:09 | Internal Med Progress Note ---
Date of Encounter: 11/09/18 Time of Encounter: 13:00 - Time Spent With Patient less than 15 minutes - Subjective Interval history: I'm doing ok. - Constitutional Vitals: Temp Pulse Resp BP Pulse Ox 97.5 F L 87 16 124/78 95 11/09/18 07:00 11/09/18 07:00 11/09/18 07:00 11/09/18 07:00 11/09/18 07:00 General appearance: Present: A&O X 3, pleasant, answers questions appropriately - Head Head exam: Present: normocephalic - Respiratory Respiratory exam: Present: CTAB. Absent: accessory muscle use, rales, rhonchi, wheezes - Cardiovascular Cardiovascular exam: Present: RRR, +S1, +S2. Absent: diastolic murmur, gallop, rubs, systolic murmur - GI/Abdominal GI/Abdominal exam: Present: normal bowel sounds, soft, no peritoneal signs. Absent: distended, tenderness Internal Medicine: Result - Labs CBC & Chem 7: 11/05/18 06:15 11/05/18 06:15 Consult Discharge Plan - Plan Referrals: NONE,PCP [Primary Care Provider] -
[2018-11-09] MEDS: Acetaminophen 325 MG TABLET PO PRN (17:19)
[2018-11-09] MEDS: *HR* OxyCODONE Immed Rel 5 MG TABLET PO PRN (17:19)
[2018-11-09] MEDS: Metoprolol XL (24 HR) Succ 50 MG TAB.ER.24H PO SCH (22:06)
[2018-11-10] MEDS: *HR* OxyCODONE Immed Rel 5 MG TABLET PO PRN ×3 (00:02→20:59)
[2018-11-10] MEDS: Acetaminophen 325 MG TABLET PO PRN ×3 (00:02→20:59)
[2018-11-10] MEDS: *HR* Enoxaparin 40 MG/0.4 ML SYRINGE SQ SCH (05:52)
[2018-11-10] MEDS: Lactobacillus 1 EACH CAP.SPRINK PO SCH ×2 (07:24→20:59)
[2018-11-10] MEDS: Cyanocobalamin (B-12) 1,000 MCG TABLET PO SCH (07:25)
[2018-11-10] MEDS: Saline Nasal Spray 44 ML BOTTLE NS SCH ×3 (07:25→21:00)
[2018-11-10] MEDS: Ascorbic Acid 500 MG TABLET PO SCH ×2 (07:25→20:59)
--- NOTE | 2018-11-10 11:08 | Event Note ---
Date of Encounter: 11/10/18 Time of Encounter: 11:07 Patient is out for an appointment/visit and so not seen, today.
[2018-11-10] MEDS: Metoprolol XL (24 HR) Succ 50 MG TAB.ER.24H PO SCH (21:00)
[2018-11-11] MEDS: *HR* Enoxaparin 40 MG/0.4 ML SYRINGE SQ SCH (06:16)
[2018-11-11] MEDS: *HR* OxyCODONE Immed Rel 5 MG TABLET PO PRN ×3 (06:17→23:24)
[2018-11-11] MEDS: Acetaminophen 325 MG TABLET PO PRN ×3 (06:17→23:27)
[2018-11-11] MEDS: Ascorbic Acid 500 MG TABLET PO SCH ×2 (08:50→21:05)
[2018-11-11] MEDS: Lactobacillus 1 EACH CAP.SPRINK PO SCH ×2 (08:50→21:05)
[2018-11-11] MEDS: Cyanocobalamin (B-12) 1,000 MCG TABLET PO SCH (08:50)
[2018-11-11] MEDS: Saline Nasal Spray 44 ML BOTTLE NS SCH ×3 (08:51→21:06)
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
[2018-11-11] MEDS: Metoprolol XL (24 HR) Succ 50 MG TAB.ER.24H PO SCH (21:05)
[2018-11-12] MEDS: *HR* Enoxaparin 40 MG/0.4 ML SYRINGE SQ SCH (05:31)
[2018-11-12] MEDS: Cyanocobalamin (B-12) 1,000 MCG TABLET PO SCH (07:26)
[2018-11-12] MEDS: Ascorbic Acid 500 MG TABLET PO SCH ×2 (07:26→20:25)
[2018-11-12] MEDS: Lactobacillus 1 EACH CAP.SPRINK PO SCH ×2 (07:26→20:24)
[2018-11-12] MEDS: Acetaminophen 325 MG TABLET PO PRN ×2 (07:26→20:29)
[2018-11-12] MEDS: *HR* OxyCODONE Immed Rel 5 MG TABLET PO PRN ×2 (07:27→20:25)
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
[2018-11-12] MEDS: Saline Nasal Spray 44 ML BOTTLE NS SCH ×3 (09:21→20:27)
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
[2018-11-12] MEDS: Metoprolol XL (24 HR) Succ 50 MG TAB.ER.24H PO SCH (20:25)
[2018-11-13] MEDS: *HR* Enoxaparin 40 MG/0.4 ML SYRINGE SQ SCH (06:21)
[2018-11-13] MEDS: Acetaminophen 325 MG TABLET PO PRN ×2 (09:31→20:52)
[2018-11-13] MEDS: Lactobacillus 1 EACH CAP.SPRINK PO SCH ×2 (09:31→20:52)
[2018-11-13] MEDS: Ascorbic Acid 500 MG TABLET PO SCH ×2 (09:31→20:53)
[2018-11-13] MEDS: Saline Nasal Spray 44 ML BOTTLE NS SCH ×3 (09:32→20:53)
[2018-11-13] MEDS: *HR* OxyCODONE Immed Rel 5 MG TABLET PO PRN ×2 (09:32→20:52)
[2018-11-13] MEDS: Cyanocobalamin (B-12) 1,000 MCG TABLET PO SCH (09:35)
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
[2018-11-13] MEDS: Metoprolol XL (24 HR) Succ 50 MG TAB.ER.24H PO SCH (20:58)
[2018-11-14] MEDS: *HR* Enoxaparin 40 MG/0.4 ML SYRINGE SQ SCH (05:11)
[2018-11-14 07:41] VITALS: BP 109/62
[2018-11-14] MEDS: Saline Nasal Spray 44 ML BOTTLE NS SCH (09:09)
[2018-11-14] MEDS: Cyanocobalamin (B-12) 1,000 MCG TABLET PO SCH (09:09)
[2018-11-14] MEDS: Ascorbic Acid 500 MG TABLET PO SCH (09:09)
[2018-11-14] MEDS: *HR* OxyCODONE Immed Rel 5 MG TABLET PO PRN (09:09)
[2018-11-14] MEDS: Lactobacillus 1 EACH CAP.SPRINK PO SCH (09:09)
[2018-11-14] MEDS: Acetaminophen 325 MG TABLET PO PRN (09:09)
--- NOTE | 2018-11-14 09:34 | Physician Discharge Referral ---
ExtendedCare Referral Info Transfer To: [facility] in [place] Provider in Charge after Transfer: PCP Institutional Level of Care: Skilled - Diagnosis (1) Hx of multiple trauma Priority: Primary Status: Acute (2) Coronary artery disease Priority: Secondary Status: Chronic (3) Hypertension Priority: Secondary Status: Chronic Prognosis: Good Aware of Diagnosis: Patient Aware of Prognosis: Patient - Transfer Medications Home Medications: Simvastatin [Zocor] 40 mg PO HS 05/13/17 [History] Acetaminophen [Tylenol] 650 mg PO Q4H PRN 10/14/18 [History] Docusate Sodium-Senna Tablet 8.6 - 50 mg PO BID 10/14/18 [History] Metoprolol Succinate 50 mg PO DAILY 10/14/18 [History] OxyCODONE Immed Rel 5 mg PO Q6H PRN 10/14/18 [History] Allergies/Adverse Reactions: Allergy/AdvReac Type Severity Reaction Status Date / Time No Known Allergies Allergy Verified 05/13/17 21:33 - Respiratory Orders Smoking Cessation: Smoking cessation has been advised. For more information, call the [employer] Tobacco Quit Line at 9-869-TWHVNOW. - Advance Directives Code Status: Full Code - Mobility Orders Chair, Ambulate - Rehabiliation Orders Rehab Potential: Good Rehab Orders: Evaluation for Physical Therapy, Evaluation for Occupational Therapy - Diet Orders Cardiac CERTIFICATION: I certify that the transfer of the above named patient to an Extended Care Facility is necessary for the continuing treatment of the diagnosis listed. The above information is true and accurate reflection of patient's current condition. Confidential - Redisclosure prohibited without a patient's written consent.
--- NOTE | 2018-11-14 09:43 | Discharge Summary ---
Date of Encounter: 11/14/18 Time of Encounter: 09:34 - Discharge Diagnosis (1) Hx of multiple trauma Priority: Primary Status: Acute Comments: follow up with Dr Colón as scheduled. transfer to ECF for 2 days before going home. pain controlled. (2) Coronary artery disease Priority: Secondary Status: Chronic Comments: controlled with current meds. f/u with PCP. Qualifiers: Coronary Disease-Associated Artery/Lesion type: augustine artery [place] vs. transplanted heart: augustine heart Associated angina: angina presence unspecified Qualified Code(s): I25.10 - Atherosclerotic heart disease of [place]ine coronary artery without angina pectoris (3) Hypertension Priority: Secondary Status: Chronic Comments: controlled with current meds. monitor BP. follow up with PCP. Qualifiers: Hypertension type: essential hypertension Qualified Code(s): I10 - Essential (primary) hypertension Hospital course: Mr. Cohen is a 78 year old male discharging to ECF for 2 days. pain controlled with oxycodone as needed. follow up with Dr Colón as scheduled. denies any other questions or concerns at this time. Discharge discussed with: patient, nurse, case management - Time Spent with Patient Total time spent providing and/or coordinating discharge services: Time spent: Less than 30 minutes - Discharge Medications Prescriptions: No Action Simvastatin [Zocor] 40 mg PO HS OxyCODONE Immed Rel 5 mg PO Q6H PRN PRN Reason: moderate to severe pain Metoprolol Succinate 50 mg PO DAILY Acetaminophen [Tylenol] 650 mg PO Q4H PRN PRN Reason: Mild Pain Docusate Sodium-Senna Tablet 8.6 - 50 mg PO BID Home Medications: Acetaminophen [Tylenol] 650 mg PO Q4H PRN 10/14/18 [History] Docusate Sodium-Senna Tablet 8.6 - 50 mg PO BID 10/14/18 [History] OxyCODONE Immed Rel 5 mg PO Q6H PRN 10/14/18 [History] Ascorbic Acid [Vitamin C] 500 mg PO BID tablet 11/14/18 [Rx] Calcium Carbonate [Tums] 1,000 mg PO BID tab.chew 11/14/18 [Rx] Cyanocobalamin (B-12) [Vitamin B12] 1,000 mcg PO DAILY tablet 11/14/18 [Rx] DULoxetine [Cymbalta] 30 mg PO BID capsule. 11/14/18 [Rx] DiphenhydraMINE [Benadryl] 25 mg PO Q6HR PRN capsule 11/14/18 [Rx] Enoxaparin [Lovenox] 40 mg SQ DAILY@0600 syringe 11/14/18 [Rx] Eucerin Creme 1 appl TP BID PRN tube 11/14/18 [Rx] Lactobacillus [Culturelle] 1 each PO BID cap.sprink 11/14/18 [Rx] Lisinopril [Zestril] 20 mg PO DAILY PRN tablet 11/14/18 [Rx] Metoprolol XL (24 HR) Succ [Toprol Xl] 100 mg PO HS tab.er.24h 11/14/18 [Rx] Potassium Chloride 20 meq PO DAILY tab.er.prt 11/14/18 [Rx] Saline Nasal [place] [Garvin Nasal [place]] 2 spray NS TID bottle 11/14/18 [Rx] Simvastatin [Zocor] 20 mg PO HS tablet 11/14/18 [Rx] Allergies/Adverse Reactions: Allergy/AdvReac Type Severity Reaction Status Date / Time No Known Allergies Allergy Verified 05/13/17 21:33 Date of admission: 10/14/18 18:33 Primary care physician: PCP NONE Consults: 10/14/18 19:05 Consult to Occupational Therapy [CONS] Routine Comment: mult frx Reason for Consult: mult frx Does patient have active BEDREST order?: No Is patient medically & hemodynamically stable?: Yes Consult to Physical Therapy [CONS] Routine Comment: mult fractures Reason for Consult: mult fractures Does patient have active BEDREST order?: No Is patient medically & hemodynamically stable?: Yes Consult to Recreational Therapy [CONS] Routine Comment: Consult to Public Affairs Officer [CONS] Routine Reason for SW Consult: discharge planning 10/29/18 09:17 Consult to Psychology [CONS] Routine Consulting Provider: Devonte Irvin Reason for Consult: Consult Dr. Kaur to eval patient for TBI Time Notified: 09:18 Call Completed: No 10/30/18 13:03 Consult to Physician [CONS] Routine Consulting Provider: Yair Bowser Reason for Consult: evaluation of left arm Fx site Time Notified: 13:10 Call Completed: No Discharging clinician: Muna Girard Anticipated date of discharge: 11/14/18 - Constitutional Vitals: Temp Pulse Resp BP Pulse Ox 98.9 F 90 16 109/62 96 11/14/18 07:40 11/14/18 07:40 11/14/18 07:40 11/14/18 07:40 11/14/18 07:40 General appearance: Present: A&O X 3, pleasant, no acute distress, answers questions appropriately - Head Head exam: Present: atraumatic, normocephalic - Eye Eye exam: Present: PERRL, conjuntiva pink, sclera anicteric Pupils: Present: PERRL - Neck Neck exam general surgery: Present: supple, trachea midline. Absent: lymphadenopathy - Respiratory Respiratory exam: Present: CTAB. Absent: accessory muscle use, rales, rhonchi, wheezes - Cardiovascular Cardiovascular exam: Present: RRR, +S1, +S2. Absent: diastolic murmur, gallop, rubs, systolic murmur - GI/Abdominal GI/Abdominal exam: Present: normal bowel sounds, soft, no peritoneal signs. Absent: distended, tenderness - Extremities Exam Extremities exam: Present: warm, radial pulses palpable and symmetrical. Absent: calf tenderness, cyanotic, pedal edema - Neurological Exam Neurological exam: Present: CN II-XII intact, oriented X3, no focal deficits. Absent: pronater drift, facial droop, speech deficit - Skin Skin exam: Present: dry, intact - Patient Status Disposition: Transfer SNF Condition: Good Functional capacity at discharge: uses cane/walker Overall status at discharge: patient is progressing back to baseline - Discharge Instructions Follow Up With: NONE,PCP [Primary Care Provider] - - Diet and Activity Activity: as per physical therapy Diet: low salt diet
== END 2018-11-14 10:50 | DRG 560 ==
LOC: INPGRE 18:33